=== PATIENT | female | born 1990 | race African-American/Black ===

== ENCOUNTER 2017-12-25 20:19 | Emergency (ER) | payer MEDICAID ==
[2017-12-25 20:27] VITALS: BP 120/63; PULSE 97; RESP 18; TEMP 98.5; O2SAT 100
--- NOTE | 2017-12-25 20:53 | PD ---
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 Patient states that the symptoms started a month ago. [facility] and given prescription for the pill for yeast infection. Patient states that the symptoms got better and then get worse again subsequently. Patient denies any dysuria frequency. Patient denies any abdominal pain. Patient denies any pelvic pain or back pain. Patient denies any fever chills. Patient denies any chance of being . PFSH Past Medical History Medical History: Denies Significant Hx ?: Not Past Surgical History Surgical History: No Previous Surgery Social History Alcohol Use: No Tobacco Use: No Substance Use: No Allergies-Medications (Allergen,Severity, Reaction): Coded Allergies: No Known Allergies (Verified Adverse Reaction, Unknown, 12/25/17) Reported Meds & Prescriptions Reported Meds & Active Scripts Active No Active Prescriptions or Reported Medications Review of Systems General / Constitutional: No: Fever Eyes: No: Visual changes HENT: No: Headaches Cardiovascular: No: Chest Pain or Discomfort Respiratory: No: Shortness of Breath Gastrointestinal: No: Abdominal Pain Genitourinary: No: Dysuria Musculoskeletal: No: Pain Skin: No Rash Neurologic: No: Weakness Psychiatric: No: Depression Endocrine: No: Polydipsia Hematologic/Lymphatic: No: Easy Bruising Physical Exam Narrative GENERAL: Well-nourished, well-developed patient. SKIN: Focused skin assessment warm/dry. HEAD: Normocephalic. EYES: No scleral icterus. No injection or drainage. NECK: Supple, trachea midline. No JVD or lymphadenopathy. CARDIOVASCULAR: Regular rate and rhythm without murmurs, gallops, or rubs. RESPIRATORY: Breath sounds equal bilaterally. No accessory muscle use. GASTROINTESTINAL: Abdomen soft, non-tender, nondistended. MUSCULOSKELETAL: No cyanosis, or edema. BACK: Nontender without obvious deformity. No CVA tenderness. 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 No cervical motion tenderness. Uterus is nonenlarged and nontender on palpation. No adnexal mass or tenderness. Data Data Last Documented VS Vital Signs Date Time Temp Pulse Resp B/P (MAP) Pulse Ox O2 Delivery O2 Flow Rate FiO2 12/25/17 20:27 98.5 97 18 120/63 (82) 100 Orders Orders Gc And Chlamydia Pcr (12/25/17 21:02) Wet Prep Profile (12/25/17 21:02) Urinalysis - C+S If Indicated (12/25/17 21:02) Ed Urine Pregnancytest Poc (12/25/17 21:02) Azithromycin Powd Pack (Zithromax Powd P (12/25/17 21:15) Rocephin 250mg Vial Im X 1 (12/25/17 21:15) MDM Medical Decision Making Medical Screen Exam Complete: Yes Emergency Medical Condition: Yes Differential Diagnosis Differential diagnosis including candidal vaginitis, bacterial vaginosis, genital herpes, cellulitis, cervicitis, PID. Narrative Course 27-year-old female with groin pain. Diagnosis Primary Impression: Cervicitis Patient Instructions: General Instructions Additional Instructions: Flagyl and Diflucan as directed. Follow-up with cell cleaner. Return if worse. Med/Other Pt SpecificInfo: Prescription(s) given Scripts Metronidazole (Flagyl) 500 Mg Tab 2000 MG PO ONCE for Infection, #4 TAB 0 Refills Prov: William Terrazas MD 12/25/17 Fluconazole (Diflucan) 150 Mg Tab 150 MG PO Q3D for Infection, #3 TAB 0 Refills Prov: William Terrazas MD 12/25/17 Disposition: 01 DISCHARGE HOME Condition: Stable William Terrazas MD Dec 25, 2017 20:53
[2017-12-25] MEDS ORDERED: DIFL150T PO (21:08)
[2017-12-25] MEDS ORDERED: METR-1 PO (21:08)
[2017-12-25] MEDS ORDERED: AZITHROMYCIN PWD FOR SUSP 1 GM PACKET PO ONE (21:15)
[2017-12-25] MEDS ORDERED: cefTRIAXone 250 MG VIAL IM ONE (21:15)
[2017-12-25 22:00] LABS: BILIRUBIN, URINE NEG (NEG); BLOOD, URINE SMALL (NEG); GLUCOSE,URINE NEG (NEG); KETONE, URINE NEG (NEG); NITRITE,URINE NEG (NEG); PH, URINE 6.5 (5.0-8.5); SQUAMOUS EPITHELIAL CELL URINE 5 /hpf (0-5); URINE COLOR YELLOW (YELLW/STRAW); URINE LEUKOCYTE ESTERASE LARGE (NEG)
== END 2017-12-25 22:01 | disposition home or self-care (01) ==
LOC: NEPD 20:19
DX: N72 Inflammatory disease of cervix uteri (principal)
CPT/HCPCS: 81001; 84703; 87210; 87491; 87591; 96372; 99284; J0696